=== PATIENT | female | born 1965 | race Caucasian/White ===

== ENCOUNTER 2022-10-27 18:05 | Inpatient (IN) ==
--- NOTE | 2022-10-27 18:40 | DR.HEADACH ---
HPI <Irving Vega - Last Filed: 10/28/22 08:22> Time Seen Time Seen by Provider: 10/27/22 18:40 Primary Care Physician Primary Care Physician: juan carlos Complaint/Symptoms Chief Complaint Doctors Comments: 57 y/o female presents for evaluation.Pt has been fighting facial shingles over the past 3 weeks, affecting the left eye. Has been on acyclovir, and antiviral eye drops. Pt was seen by ophthalmology today, they think the pt is developing viral retinitis. Has appt with retinal specialist tomorrow. Developed shaking chills today, with several episodes of nausea and vomiting. Having headaches since the onset. + worsened with light. Pt is on a chemo agent for chronic cerebral vasculitis. Also has h/o DM. Chief Complaint:: pt has shingles behind her lt eye and c/o severe headache and vomiting x 1 day Reviewed Nurses Notes Reviewed: Yes Source History Provided: Patient Mode of Arrival Mode of Arrival: Wheelchair Timing Onset of Chief Complaint: 10/27/22 Location Headache Location: Generalized Severity Headache Severity: Severe PMH <Irving Vega - Last Filed: 10/28/22 08:22> PMH Past Medical History: Yes Past Medical History: Diabetes, GERD and Hypertension Past Medical History Comment: long covid, cerebral vasculitis Past Surgical History: Yes Surgical History: Cholecystectomy and Ortho Surgery Family History History of Family Medical Conditions: Yes Family Medical History: Diabetes Mellitus and Hypertension Social History Does patient currently use any type of tobacco product: No Does any household member use tobacco: No Alcohol Use: None Do you use any recreational Drugs:: No Lives With: Family Lives Where: Home Infectious screening In the last 2 months have you had wt loss of >10#?: NO Have you had fever, night sweats or hemotysis?: No Have you traveled outside the country in the last 6 months?: No Isolation: Standard ROS <Irving Vega - Last Filed: 10/28/22 08:22> Review of Systems Constitutional: Chills Eyes: See HPI ENTM: No Symptoms Reported Respiratoy: No Symptoms Reported Cardiovascular: No Symptoms Reported Gastrointestinal/Abdominal: Nausea and Vomiting Genitourinary: No Symptoms Reported Neurological: Headache Musculoskeletal: No Symptoms Reported Integumentary: No Symptoms Reported All Other Systems: Reviewed and Negative PE <Irving Gary - Last Filed: 10/28/22 08:22> Vital Signs Vitals: Temperature 98.1 F Temperature 98.2 F Pulse Rate 86 Pulse Rate 127 Respiratory Rate 18 Respiratory Rate 24 Blood Pressure [Right Arm] 112/51 Blood Pressure [Left Arm] 148/81 Blood Pressure 93/62 Blood Pressure 110/62 O2 Sat by Pulse Oximetry 97 O2 Sat by Pulse Oximetry 93 General General Appearance: Alert and In Distress Head Head Exam: Normal Inspection Eyes Eye exam: PERRL, EOMI and Other (+ photophobia); negative Conjunctival Injection Neck Neck Exam: Normal Inspection Respiratory Respiratory Exam: Normal Lung Sounds Bilat; negative Accessory Muscle Use or Respiratory Distress Cardiovascular Cardiovascular Exam: Regular Rate, Normal Rhythm, Tachycardia and Normal Heart Sounds Abdominal Exam Abdominal Exam: Soft; negative Tenderness Neurologic Neurological Exam: Alert, Oriented X3 and CN II-XII Intact; negative Motor Sensory Deficit Skin Skin Exam: Warm and Dry <Deb MiguelLouis - Last Filed: 10/29/22 03:53> Vital Signs Vitals: Temperature 98.1 F Temperature 98.2 F Pulse Rate 86 Pulse Rate 127 Respiratory Rate 18 Respiratory Rate 24 Blood Pressure [Right Arm] 112/51 Blood Pressure [Left Arm] 148/81 Blood Pressure 93/62 Blood Pressure 110/62 O2 Sat by Pulse Oximetry 97 O2 Sat by Pulse Oximetry 93 <Deb AsencioggNicolaix - Last Filed: 10/29/22 03:53> Differential Diagnosis Differential Diagnosis: Considerations may include:: CVA, Intracerebral Hemorrhage and Sinusitis Differential Diagnosis Comment: Dehydration,electrolyte abnormalities COURSE <Irving Vega - Last Filed: 10/28/22 08:22> Treatment Treatment: 57 y/o with recent left facial shingles, affected the eye. Now with possible developing left viral retinitis. Has appt with leave specialist tomorrow. W/u initiated. Pt given IV fluids, IV dilaudid/zofran, and dose of IV decadron. <Deb MiguelLouis - Last Filed: 10/29/22 03:53> Treatment Treatment: 57 y/o with recent left facial shingles, affected the eye. Now with possible developing left viral retinitis. Has appt with leave specialist tomorrow. W/u initiated. Pt given IV fluids, IV dilaudid/zofran, and dose of IV decadron. Patient's Brain CT w/o contrast revealed Left maxillary sinusitis and she was given rocephin 1 gram Iv. Patient says she is very sensitive to pain meds and they can decrease her BP. Patient 's bp is 103/52 affter the 2nd liter iv bolus. She has been accepted to Dr Paez's service and he has asked to run the 3rd liter @50ml/hr iv. Patient usually wears 2L of 02 nc since she has had long covid.Today her 02 sats were in the 80's on the 2L and she has had 4L 02 in the ED with her 02 sat 99- 100% Patient has stage III Kidney Disease (Dr Vega states that her creat is usually 1.5). Patient had nausea and vomiting at home today that has contributed to the creat of 2.31 ROR <Irving Vega - Last Filed: 10/28/22 08:22> Labs Reviewed Result Diagrams: 10/28/22 04:13 10/28/22 04:13 Laboratory: 10/27/22 20:02 Blood Blood Culture - Preliminary 10/27/22 20:09 Blood Blood Culture - Preliminary WBC 4.3 X10^3/uL (3.6-10.0) 10/27/22 19:10 RBC 3.58 X10^6/uL (3.5-5.4) 10/27/22 19:10 Hgb 11.7 g/dL (12.0-16.0) L 10/27/22 19:10 Hct 34.3 % (36.0-47.0) L 10/27/22 19:10 MCV 95.8 fL (80.0-100.0) 10/27/22 19:10 MCH 32.7 pg (27.0-34.0) 10/27/22 19:10 MCHC 34.1 g/dL (33.0-35.0) 10/27/22 19:10 RDW 17.7 % (11.6-16.5) H 10/27/22 19:10 Plt Count 161 X10^3/uL (150.0-450.0) 10/27/22 19:10 Plt Count Comment Adequate (ADEQUATE) 10/27/22 19:10 MPV 7.0 fL (7.4-11.0) L 10/27/22 19:10 Neut % (Auto) 97.2 % (42.0-75.0) H 10/27/22 19:10 Lymph % (Auto) 1.5 % (21.0-51.0) L 10/27/22 19:10 [place] % (Auto) 0.9 % (0.0-13.0) 10/27/22 19:10 Eos % (Auto) 0.2 % (0.9-2.9) L 10/27/22 19:10 Baso % (Auto) 0.2 % (0.2-1.0) 10/27/22 19:10 Neut # (Auto) 4.2 x10^3/uL (2.2-4.8) 10/27/22 19:10 Lymph # (Auto) 0.1 X10^3/uL (1.3-2.9) L 10/27/22 19:10 [place] # (Auto) 0 x10^3/uL (0.3-0.8) L 10/27/22 19:10 Eos # (Auto) 0.0 x10^3/uL (0.0-0.2) 10/27/22 19:10 Baso # (Auto) 0.0 X10^3/uL (0.0-0.1) 10/27/22 19:10 Absolute Nucleated RBC 0.1 /100WBC 10/27/22 19:10 Total Counted 100 10/27/22 19:10 Neutrophils % (Manual) 87 % (39-76) H 10/27/22 19:10 Band Neutrophils % 9 % (0-10) 10/27/22 19:10 Lymphocytes % (Manual) 4 % (13-43) L 10/27/22 19:10 Plt Morphology Comment Normal (NORMAL) 10/27/22 19:10 RBC Morphology Abnormal (NORMAL) A 10/27/22 19:10 Poikilocytosis Slight A 10/27/22 19:10 Anisocytosis Slight A 10/27/22 19:10 Sodium 138 mmol/L (136-145) 10/27/22 19:10 Corrected Sodium 139 mmol/L (136-145) 10/27/22 19:10 Potassium 4.5 mmol/L (3.5-5.1) 10/27/22 19:10 Chloride 98 mmol/L (98-107) 10/27/22 19:10 Carbon Dioxide 26.0 mmol/L (21-32) 10/27/22 19:10 BUN 38 mg/dL (7-18) H 10/27/22 19:10 Creatinine 2.31 mg/dL (0.55-1.02) H 10/27/22 19:10 Est GFR (MDRD) Af Amer 28 (>60) L 10/27/22 19:10 Est GFR (MDRD) Non-Af 23 (>60) L 10/27/22 19:10 Glucose 137 mg/dL (65-99) H 10/27/22 19:10 Lactic Acid 3.0 mmol/L (0.4-2.0) H 10/27/22 23:05 Calcium 8.6 mg/dL (8.5-10.1) 10/27/22 19:10 Corrected Calcium TNP 10/27/22 19:10 Total Bilirubin 0.50 mg/dL (0.2-1.0) 10/27/22 19:10 AST 17 Units/L (15-37) 10/27/22 19:10 ALT 24 Units/L (12-78) 10/27/22 19:10 Alkaline Phosphatase 100 Units/L (46-116) 10/27/22 19:10 Total Protein 7.0 g/dL (6.4-8.2) 10/27/22 19:10 Albumin 3.7 g/dL (3.4-5.0) 10/27/22 19:10 Globulin 3.3 g/dL (2.5-4.5) 10/27/22 19:10 Albumin/Globulin Ratio 1.1 Ratio (1.1-2.1) 10/27/22 19:10 Lipase 150 Units/L (73-393) 10/27/22 19:10 SARS-CoV-2 (PCR) Negative (NEGATIVE) 10/27/22 19:59 Influenza Type A (PCR) Negative (NEGATIVE) 10/27/22 19:59 Influenza Type B (PCR) Negative (NEGATIVE) 10/27/22 19:59 RSV (PCR) Negative (NEGATIVE) 10/27/22 19:59 <Deb Hoffman - Last Filed: 10/29/22 03:53> Labs Reviewed Laboratory Results Reviewed?: Yes Laboratory: 10/27/22 20:02 Blood Blood Culture - Preliminary 10/27/22 20:09 Blood Blood Culture - Preliminary WBC 4.3 X10^3/uL (3.6-10.0) 10/27/22 19:10 RBC 3.58 X10^6/uL (3.5-5.4) 10/27/22 19:10 Hgb 11.7 g/dL (12.0-16.0) L 10/27/22 19:10 Hct 34.3 % (36.0-47.0) L 10/27/22 19:10 MCV 95.8 fL (80.0-100.0) 10/27/22 19:10 MCH 32.7 pg (27.0-34.0) 10/27/22 19:10 MCHC 34.1 g/dL (33.0-35.0) 10/27/22 19:10 RDW 17.7 % (11.6-16.5) H 10/27/22 19:10 Plt Count 161 X10^3/uL (150.0-450.0) 10/27/22 19:10 Plt Count Comment Adequate (ADEQUATE) 10/27/22 19:10 MPV 7.0 fL (7.4-11.0) L 10/27/22 19:10 Neut % (Auto) 97.2 % (42.0-75.0) H 10/27/22 19:10 Lymph % (Auto) 1.5 % (21.0-51.0) L 10/27/22 19:10 [place] % (Auto) 0.9 % (0.0-13.0) 10/27/22 19:10 Eos % (Auto) 0.2 % (0.9-2.9) L 10/27/22 19:10 Baso % (Auto) 0.2 % (0.2-1.0) 10/27/22 19:10 Neut # (Auto) 4.2 x10^3/uL (2.2-4.8) 10/27/22 19:10 Lymph # (Auto) 0.1 X10^3/uL (1.3-2.9) L 10/27/22 19:10 [place] # (Auto) 0 x10^3/uL (0.3-0.8) L 10/27/22 19:10 Eos # (Auto) 0.0 x10^3/uL (0.0-0.2) 10/27/22 19:10 Baso # (Auto) 0.0 X10^3/uL (0.0-0.1) 10/27/22 19:10 Absolute Nucleated RBC 0.1 /100WBC 10/27/22 19:10 Total Counted 100 10/27/22 19:10 Neutrophils % (Manual) 87 % (39-76) H 10/27/22 19:10 Band Neutrophils % 9 % (0-10) 10/27/22 19:10 Lymphocytes % (Manual) 4 % (13-43) L 10/27/22 19:10 Plt Morphology Comment Normal (NORMAL) 10/27/22 19:10 RBC Morphology Abnormal (NORMAL) A 10/27/22 19:10 Poikilocytosis Slight A 10/27/22 19:10 Anisocytosis Slight A 10/27/22 19:10 Sodium 138 mmol/L (136-145) 10/27/22 19:10 Corrected Sodium 139 mmol/L (136-145) 10/27/22 19:10 Potassium 4.5 mmol/L (3.5-5.1) 10/27/22 19:10 Chloride 98 mmol/L (98-107) 10/27/22 19:10 Carbon Dioxide 26.0 mmol/L (21-32) 10/27/22 19:10 BUN 38 mg/dL (7-18) H 10/27/22 19:10 Creatinine 2.31 mg/dL (0.55-1.02) H 10/27/22 19:10 Est GFR (MDRD) Af Amer 28 (>60) L 10/27/22 19:10 Est GFR (MDRD) Non-Af 23 (>60) L 10/27/22 19:10 Glucose 137 mg/dL (65-99) H 10/27/22 19:10 Lactic Acid 3.0 mmol/L (0.4-2.0) H 10/27/22 23:05 Calcium 8.6 mg/dL (8.5-10.1) 10/27/22 19:10 Corrected Calcium TNP 05/31/23 19:10 Total Bilirubin 0.50 mg/dL (0.2-1.0) 10/27/22 19:10 AST 17 Units/L (15-37) 10/27/22 19:10 ALT 24 Units/L (12-78) 10/27/22 19:10 Alkaline Phosphatase 100 Units/L (46-116) 10/27/22 19:10 Total Protein 7.0 g/dL (6.4-8.2) 10/27/22 19:10 Albumin 3.7 g/dL (3.4-5.0) 10/27/22 19:10 Globulin 3.3 g/dL (2.5-4.5) 10/27/22 19:10 Albumin/Globulin Ratio 1.1 Ratio (1.1-2.1) 10/27/22 19:10 Lipase 150 Units/L (73-393) 10/27/22 19:10 SARS-CoV-2 (PCR) Negative (NEGATIVE) 10/27/22 19:59 Influenza Type A (PCR) Negative (NEGATIVE) 10/27/22 19:59 Influenza Type B (PCR) Negative (NEGATIVE) 10/27/22 19:59 RSV (PCR) Negative (NEGATIVE) 10/27/22 19:59 XRAY XRAY Interpreted by: Radiologist X-ray Results: HISTORY Shortness of breath STUDY CHEST, 1 VIEW COMPARISON 03/02/2022 FINDINGS The trachea is midline. The cardiac silhouette is enlarged with a tortuous thoracic aorta . Increased interstitial changes with prominent vascular markings are observed consistent with underlying CHF.. The bony thorax is unremarkable. IMPRESSION Increased interstitial changes with prominent vascular markings are observed consistent with underlying CHF. Electronically signed by: SAHRA WALTER (Oct 28, 2022 06:52:32) Opioid <Irving Vega - Last Filed: 10/28/22 08:22> Opioid Risk Tool Age (Coy box if 16-45): No History of Preadolescent Sexual Abuse: No Total: 0 Total Score Risk Category: Low Risk Copyright: Curt predicting aberrant behaviors <Deb Hoffman - Last Filed: 10/29/22 03:53> Opioid Risk Tool Total: 0 Total Score Risk Category: Low Risk Discharge Plan Diagnosis Discharge Problem: Herpes zoster retinitis of left eye, Left maxillary sinusitis, Chronic kidney disease, stage 3, Hypotension, Congestive heart failure Discharge Plan Patient Disposition: 09 ADMITTED INPATIENT Condition: Stable Orders to Discharge Patient Discharge Orders: Discharge by Transfer to Outside Facility (Routine); Ordered 10/28/22 Ordered By: Buddy Hogue
[2022-10-27] MEDS ORDERED: NS 1,000 ML IV 1,000 ML IV ONE ×2 (18:56→23:02)
[2022-10-27] MEDS ORDERED: ZOFRAN INJ 4 MG VIAL IVP ONE (18:56)
[2022-10-27] MEDS ORDERED: DILAUDID INJ IVP ONE (18:56)
[2022-10-27] MEDS ORDERED: DECADRON INJ IVP ONE (18:56)
[2022-10-27] MEDS ORDERED: NS 1,000 ML IV 1,000 ML ONE ×2 (19:03→23:03)
[2022-10-27] MEDS ORDERED: DECADRON INJ ONE (19:03)
[2022-10-27] MEDS ORDERED: DILAUDID INJ ONE (19:03)
[2022-10-27] MEDS ORDERED: ZOFRAN INJ 4 MG VIAL ONE (19:03)
[2022-10-27 19:21] LABS: HEMATOCRIT 34.3 % (36.0-47.0); HEMOGLOBIN 11.7 g/dL (12.0-16.0); LYMPHOCYTES # (AUTO) 0.1 X10^3/uL (1.3-2.9); LYMPHOCYTES % (AUTO) 1.5 % (21.0-51.0); MEAN CORPUSCULAR HEMOGLOBIN 32.7 pg (27.0-34.0); WHITE BLOOD COUNT 4.3 X10^3/uL (3.6-10.0)
[2022-10-27 19:25] LABS: BASOPHILS % (AUTO) 0.2 % (0.2-1.0); EOSINOPHILS % (AUTO) 0.2 % (0.9-2.9); MEAN CORPUSCULAR HGB CONC 34.1 g/dL (33.0-35.0); MEAN CORPUSCULAR VOLUME 95.8 fL (80.0-100.0); MONOCYTES # (AUTO) 0 x10^3/uL (0.3-0.8); MONOCYTES % (AUTO) 0.9 % (0.0-13.0); NEUTROPHILS # (AUTO) 4.2 x10^3/uL (2.2-4.8); NEUTROPHILS % (AUTO) 97.2 % (42.0-75.0); PLATELET COUNT 161 X10^3/uL (150.0-450.0); RED BLOOD COUNT 3.58 X10^6/uL (3.5-5.4); RED CELL DISTRIBUTION WIDTH 17.7 % (11.6-16.5)
[2022-10-27 19:32] LABS: ALANINE AMINOTRANSFERASE 24 Units/L (12-78); ALBUMIN 3.7 g/dL (3.4-5.0); ALKALINE PHOSPHATASE 100 Units/L (46-116); ASPARTATE AMINO TRANSFERASE 17 Units/L (15-37); BLOOD UREA NITROGEN 38 mg/dL (7-18); CALCIUM 8.6 mg/dL (8.5-10.1); CHLORIDE 98 mmol/L (98-107); COR NA(FOR HYPERGLY) 139 mmol/L (136-145); CREATININE 2.31 mg/dL (0.55-1.02); GLUCOSE 137 mg/dL (65-99); LIPASE 150 Units/L (73-393); POTASSIUM 4.5 mmol/L (3.5-5.1); SODIUM 138 mmol/L (136-145); eGFR NON BLACK RACES 23 (>60)
[2022-10-27 19:41] LABS: BAND NEUTROPHILS % 9 % (0-10); PLATELET MORPHOLOGY COMMENT NORMAL (NORMAL)
[2022-10-27 19:42] LABS: ANISOCYTOSIS SLIGHT; POIKILOCYTOSIS SLIGHT
[2022-10-27] MEDS ORDERED: TYLENOL 500 MG TAB EXTRA STRENGTH PO ONE ×2 (19:51→19:53)
--- NOTE | 2022-10-27 19:55 | CT ---
BRAIN W/O CONCLINICAL INDICATION: HeadacheTECHNIQUE: Images were obtained through the head per standard CT protocol. Multiplanar reformatted images were generated from the CT dataset. Dose reduction techniques including Automated Exposure Control (AEC) and adjustment of mA and kV were utlized.COMPARISON:None.FINDINGS:There is no abnormal brain parenchymal density . There is no evidence of acute infarction, intracranial hemorrhage, mass or mass effect, or abnormal extra-axial collection . The density of the larger dural venous sinuses is normal . The ventricles are normal in size, shape and position . The skull base and calvarium are normal.Opacification left maxillary side.IMPRESSION:1.Left maxillary sinus opacification. Correlate with symptoms. No acute intracranial abnormality.Electronically signed by: ABHAY RIOS (October 27, 2022 19:54:27)
[2022-10-27] MEDS ORDERED: ROCEPHIN VIAL 1 GRAM 1 G in NS 100 ML IV 100 ML IV ONE (20:13)
[2022-10-27] MEDS ORDERED: ROCEPHIN VIAL 1 GRAM ONE (20:23)
[2022-10-27] MEDS ORDERED: NS 100 ML IV 100 ML ONE (20:23)
[2022-10-28] MEDS ORDERED: NS 1,000 ML IV 1,000 ML ONE (00:04)
[2022-10-28] MEDS: NS 1,000 ML IV 1,000 ML IV SCH ×2 (00:05→15:18)
[2022-10-28] MEDS ORDERED: ZOFRAN TAB 4 MG PO PRN (01:44)
[2022-10-28] MEDS ORDERED: PATIENT'S HOME MEDICATION (Alprazolam [Xanax] 0.5 mg Tablet) PO PRN (01:44)
[2022-10-28] MEDS ORDERED: XANAX PO PRN (02:00)
--- NOTE | 2022-10-28 02:02 | EKG ---
Test Reason : AE Blood Pressure : */* mmHG Vent. Rate : 92 BPM Atrial Rate : 92 BPM P-R Int : 200 ms QRS Dur : 88 ms QT Int : 362 ms P-R-T Axes : 24 -8 15 degrees QTc Int : 447 ms Sinus rhythm with premature supraventricular complexes and with occasional premature ventricular comp lexes Otherwise normal ECG No previous ECGs available Confirmed by Dong Villagomez ([id number]) on 10/29/2022 4:38:54 PM Referred By: Confirmed By: Dong Villagomez
[2022-10-28] MEDS ORDERED: TYLENOL 325 MG TAB PO ONE (04:20)
[2022-10-28] MEDS: TYLENOL 325 MG TAB PO PRN ×3 (04:30→21:16)
[2022-10-28 05:16] LABS: BASOPHILS % (AUTO) 0.3 % (0.2-1.0); HEMATOCRIT 29.9 % (36.0-47.0); HEMOGLOBIN 10.4 g/dL (12.0-16.0); LYMPHOCYTES # (AUTO) 0.1 X10^3/uL (1.3-2.9); LYMPHOCYTES % (AUTO) 0.8 % (21.0-51.0); MEAN CORPUSCULAR HEMOGLOBIN 33.7 pg (27.0-34.0); MEAN CORPUSCULAR HGB CONC 34.8 g/dL (33.0-35.0); MEAN CORPUSCULAR VOLUME 96.6 fL (80.0-100.0); MEAN PLATELET VOLUME 7.7 fL (7.4-11.0); MONOCYTES # (AUTO) 0.1 x10^3/uL (0.3-0.8); MONOCYTES % (AUTO) 1.4 % (0.0-13.0); NEUTROPHILS # (AUTO) 8.2 x10^3/uL (2.2-4.8); NEUTROPHILS % (AUTO) 97.5 % (42.0-75.0); PLATELET COUNT 137 X10^3/uL (150.0-450.0); WHITE BLOOD COUNT 8.4 X10^3/uL (3.6-10.0)
[2022-10-28 05:23] LABS: CALCIUM 7.9 mg/dL (8.5-10.1); CARBON DIOXIDE 24.5 mmol/L (21-32); COR CA(FOR HYPOALB) 8.7 mg/dL (8.5-10.1); CREATININE 2.74 mg/dL (0.55-1.02); POTASSIUM 4.9 mmol/L (3.5-5.1); TOTAL PROTEIN 6.3 g/dL (6.4-8.2)
[2022-10-28 05:50] VITALS: BMI 44.6
[2022-10-28] MEDS ORDERED: VALTREX PO SCH ×2 (06:00→21:00)
[2022-10-28] MEDS ORDERED: NEURONTIN CAP 300 MG PO SCH ×2 (06:00→21:00)
[2022-10-28 06:11] LABS: APPEARANCE,URINE SLIGHTLY HAZY (CLEAR); COLOR,URINE YELLOW (YELLOW)
[2022-10-28 06:12] LABS: BACTERIA,URINE NEGATIVE /HPF (NEGATIVE); BILIRUBIN,URINE NEGATIVE (NEGATIVE); BLOOD/HEMOGLOBIN,URINE NEGATIVE (NEGATIVE); GLUCOSE, URINE NEGATIVE (NEGATIVE); KETONES,URINE NEGATIVE (NEGATIVE); LEUKOCYTE ESTERASE ,URINE 1+ (NEGATIVE); NITRITES,URINE NEGATIVE (NEGATIVE); PROTEIN,URINE TRACE (NEGATIVE); RBC,URINE 0-2 /HPF (0-3); SQUAMOUS EPITHELIAL CELL,UR RARE /HPF (NEGATIVE); UROBILINOGEN,URINE NORMAL (NORMAL)
[2022-10-28 06:19] LABS: ANISOCYTOSIS SLIGHT; BAND NEUTROPHILS % 28 % (0-10); METAMYELOCYTES % 4; PLATELET MORPHOLOGY COMMENT NORMAL (NORMAL)
--- NOTE | 2022-10-28 07:01 | RAD ---
HISTORYShortness of breathSTUDYCHEST, 1 [id number]/04/2022FINDINGSThe trachea is midline. The cardiac silhouette is enlarged with a tortuous thoracic aorta . Increased interstitial changes with prominent vascular markings are observed consistent with underlying CHF.. The bony thorax is unremarkable.IMPRESSIONIncreased interstitial changes with prominent vascular markings are observed consistent with underlying CHF.Electronically signed by: SAHRA WALTER (Oct 28, 2022 06:52:32)
[2022-10-28] MEDS ORDERED: PERCOCET TAB 5/325 MG PO PRN (08:00)
[2022-10-28] MEDS: PROVENTIL NEB TX 0.083% 2.5MG/ 3ML NEB SCH ×2 (08:17→13:37)
[2022-10-28] MEDS ORDERED: LEVOPHED INJ (VIAL) 8 MG in D5W 250 ML IV 250 ML IV PRN (08:33)
[2022-10-28] MEDS ORDERED: LEVOPHED 8 MG/250 ML IV *PREMIX 8 MG/250 ML PLAST..BAG IV PRN (08:38)
[2022-10-28] MEDS: MOTRIN TAB 800 MG PO PRN ×2 (08:56→14:40)
[2022-10-28] MEDS ORDERED: [UNRECOGNIZED DRUG - OTHER] IN SCH (09:00)
[2022-10-28] MEDS ORDERED: ASPIRIN EC 81 MG PO SCH (09:00)
[2022-10-28] MEDS ORDERED: FLUTICASONE PROPIONATE IN SCH (09:00)
[2022-10-28] MEDS ORDERED: BUSPAR PO SCH (09:00)
[2022-10-28] MEDS ORDERED: [UNRECOGNIZED DRUG - OTHER] PO SCH (09:00)
[2022-10-28] MEDS ORDERED: VITAMIN D3 125 mcg (5,000 UNITS) PO SCH (09:00)
[2022-10-28] MEDS ORDERED: SALMETEROL IN SCH (09:00)
[2022-10-28] MEDS ORDERED: LEVAQUIN PREMIX IV 750 MG 750 MG/150 ML BAG IV SCH (09:00)
[2022-10-28] MEDS ORDERED: VIT C E ZN COPPR LUTEIN ZEAXAN PO SCH (09:00)
[2022-10-28] MEDS ORDERED: LEXAPRO PO SCH ×2 (09:00)
[2022-10-28] MEDS ORDERED: TOPROL XL PO SCH (09:00)
[2022-10-28] MEDS ORDERED: CYCLOPHOSPHAMIDE 50 MG PO SCH ×2 (09:00)
[2022-10-28] MEDS ORDERED: PULMICORT NEB TX 0.5 MG NEB SCH (09:00)
[2022-10-28 09:06] LABS: LACTIC ACID 2.8 mmol/L (0.4-2.0)
[2022-10-28] MEDS ORDERED: LEXAPRO ONE (09:19)
[2022-10-28] MEDS: PROTONIX TAB 40 MG PO SCH ×2 (09:32→21:19)
[2022-10-28] MEDS: FORTAZ or TAZICEF VIAL INJ 1 G in NS 100 ML IV 100 ML IV SCH ×2 (09:33→21:20)
[2022-10-28] MEDS ORDERED: VANCOMYCIN IV *PREMIX 1.5 G/300 ML BAG 1.5 G/300 ML PIGGYBACK IV SCH (10:30)
--- NOTE | 2022-10-28 10:37 | DR.H&P ---
H&P - History & Physical for Day of: H&P Date: 10/28/22 - Chief Complaint Chief Complaint: FEVER, CHILLS, NAUSEA, VOMITING, HEADACHE, WEAKNESS - History of Present Illness History of Present Illness: IS A 57 YEAR OLD PATIENT OF OURS. SHE PRESENTED TO THE ER WITH COMPLAINTS OF FEVER, CHILLS, NAUSEA, VOMITING, HEADACHE, DYSURIA, DIZZINESS, DECREASED APPETITE, AND INCREASED WEAKNESS. 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 SHE REPORTS THAT SHE HAS BEEN RECEIVING TREATMENT FOR SHINGLES OF THE FACE WHICH HAS AFFECTED THE LEFT EYE FOR THE PAST THREE WEEKS. SHE HAS BEEN TAKING ACYCLOVIR AND ANTIVIRAL EYE DROPS. SHE WAS ALSO SEEN BY THE OPTHALMOLOGIST PRIOR TO ADMISSION AND WAS TOLD THAT SHE IS DEVELOPING VIRAL RETINITIS. SHE REPORTS THAT SHE IS ALSO TAKING A CHEMO AGENT FOR CHRONIC CEREBRAL VASCULITIS. OTHER MEDICAL HISTORY INCLUDES TYPE 2 DM, GERD, HTN, KIDNEY DISEASE, OSTEOARTHRITIS, MACULAR DEGENERATION, PULMONARY HTN, LONG COVID, AND OBESITY. ON ARRIVAL TO THE HOSPITAL, HER VITALS WERE 98.2-127-24-93%-110/62. LABS WERE OBTAINED. WBC 4.3, RBC 3.58, HGB 11.7, HCT 34.3, PLT COUNT 161, SODIUM 138, POTASSIUM 4.5, CHLORIDE 98, CARBON DIOXIDE 26, BUN 38, CREATININE 2.31, GLUCOSE 137, LACTIC ACID 3.3, CALCIUM 8.6, AST 17, ALT 24, ALK PHOS 100, TOTAL PROTEIN 7.0, ALBUMN 3.7, LIPASE 150. URINALYSIS WAS OBTAINED AND REVEALED: WBC 0-2, RBC 0-2, LEUKOCYTES 1+, BACTERIA NEGATIVE. COVID, INFLUENZA, AND RSV NEGATIVE. BLOOD AND URINE CULTURES WERE SET UP. A BRAIN CT WAS OBTAINED AND REVEALED: 1.Left maxillary sinus opacification. Correlate with symptoms. No acute intracranial abnormality. AN EKG WAS OBTAINED AND REVEALED: SINUS RHYTHM WITH PVCs AND WITH OCCASIONAL PREMATURE VENTRICULAR COMPLEXES. A CHEST XRAY WAS OBTAINED AND REVEALED: Increased interstitial changes with prominent vascular markings are observed consistent with underlying CHF. IN THE ER, SHE WAS GIVEN DECADRON 8MG IV X 1, DILAUDID 1MG IV X 1, NORMAL SALINE BOLUS X 2 LITERS, ZOFRAN 4MG IV X 1, TYLENOL 1000MG X 1 DOSE, ROCEPHIN 1G IV X 1. SHE WAS ADMITTED TO THE HOSPITAL INPATIENT STATUS FOR FURTHER EVALUATION AND TREATMENT OF SEPSIS, SEPTIC SHOCK, SHINGLES, DEHYDRATION, ACUTE ON CHRONIC RENAL FAILURE. SHE WAS STARTED ON NORMAL SALINE AT 150 ML/HR, LEVAQUIN 750MG IV Q48H, FORTAZ 1G IV BID, VANCOMYCIN 1.5G IV DAILY, PULMICORT NEBS BID, PROVENTIL NEBS BID, MOTRIN 800MG PO Q8H PRN, VALTREX 1G PO BID, AND HER HOME MEDICATIONS WERE RESUMED. HOME MEDS INCLUDE: XANAX, ASPIRIN, BUSPAR, ZYRTEC, VITAMIN D3, LEXAPRO, NEURONTIN, TOPROL XL, ZOFRAN, PROTONIX, PERCOCET. AFTER ADMISSION, HER BLOOD PRESSURE DROPPED TO THE 70/40s. SHE WAS GIVEN AN ADDITIONAL 1 LITER BOLUS OF NORMAL SALINE WITH NO IMPROVEMENT NOTED IN BLOOD PRESSURE. WE THEN STARTED A LEVOPHED DRIP. OTHERWISE, WE PLAN TO FOLLOW-UP WITH AM LABS AND CONTINUE TO MONITOR AND MAKE ADJUSTMENTS NECESSARY. TIME SPENT ON CLINICAL ASSESSMENT, REVIEWING LABS AND IMAGING, DECISION MAKING, AND DOCUMENTATION GREATER THAN 75 MINUTES. 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 VASCULITIS - Past Surgical History Surgical History: Cholecystectomy - Family History Family Medical History: Diabetes Mellitus, Cancer, Hypertension - Social History Does patient currently use any type of tobacco product: No Have you used tobacco products in the last 12 months: No Does any household member use tobacco: No Alcohol Use: None Drug Use: None - Medications Home Medications: Home Medications Medication Instructions Recorded Confirmed Type alprazolam 0.5 mg tablet (Xanax) 0.5 mg PO QDAY PRN Anxiety 08/13/18 10/27/22 History aspirin 81 mg tablet,delayed 81 mg PO QAM 08/13/18 10/27/22 History release (Aspir-) cetirizine 10 mg capsule (Zyrtec) 10 mg PO QHS 08/13/18 10/27/22 History cholecalciferol (vitamin D3) 125 5,000 units PO QAM 08/13/18 10/27/22 History mcg (5,000 unit) tablet (Vitamin D3) escitalopram oxalate 10 mg tablet 20 mg PO QAM 08/13/18 10/27/22 History (Lexapro) ibuprofen 800 mg tablet 800 mg PO Q8H PRN Pain 08/13/18 10/27/22 History insulin detemir U-100 100 unit/mL 25 units subcut BID 08/13/18 10/27/22 History subcutaneous solution (Levemir U-100 Insulin) metformin 1,000 mg tablet 1,000 mg PO BID 08/13/18 10/27/22 History olmesartan 20 mg tablet (Benicar) 20 mg PO QAM 08/13/18 12/07/21 History pantoprazole 40 mg tablet,delayed 40 mg PO BID 08/13/18 10/27/22 History release (Protonix) vit C 250 mg-vit E 90 mg-zinc 40 1 cap PO BID 08/13/18 12/07/21 History mg-copper 1 [id number] capsule (PreserVision AREDS-2) sulfamethoxazole 800 1 tab PO QDAY 12/07/21 10/27/22 History mg-trimethoprim 160 mg tablet buspirone 5 mg tablet 1 tab PO BID 10/27/22 10/27/22 History cetirizine 10 mg tablet 1 tab PO QPM 10/27/22 10/27/22 History cyclophosphamide 50 mg capsule 1 cap PO QDAY 10/27/22 10/27/22 History escitalopram oxalate 20 mg tablet 1 tab PO QAM 10/27/22 10/27/22 History fluticasone 113 mcg-salmeterol 14 1 puff inhalation BID 10/27/22 10/27/22 History mcg/actuation breath activated powdr gabapentin 300 mg capsule 1 cap PO TID 10/27/22 10/27/22 History insulin detemir U-100 100 unit/mL 30 unit subcut BID 10/27/22 10/27/22 History (3 mL) subcutaneous pen (Levemir FlexPen) metoprolol succinate 25 mg 0.5 tab PO QAM 10/27/22 10/27/22 History tablet,extended release 24 hr ondansetron 4 mg disintegrating 1 tab PO PRN PRN 10/27/22 10/27/22 History tablet oxycodone-acetaminophen 7.5 mg-325 1 tab PO QID PRN pain 10/27/22 10/27/22 History mg tablet prednisone 1 mg tablet 1 tab PO DAILY 10/27/22 10/28/22 History valacyclovir 1 gram tablet 1 tab PO TID 10/27/22 10/27/22 History - Review of Systems Constitutional: Fever, Chills, Weakness Eyes: No Symptoms Reported ENT: No Symptoms Reported Respiratory: Shortness of Breath Cardiovascular: Light Headedness Gastrointestinal: Nausea, Vomiting. denies: Abdominal Pain, Diarrhea, Constipation Genitourinary: Dysuria Musculoskeletal: No Symptoms Reported Skin: No Symptoms Reported Neurological: Weakness, Confusion - Physical Exam Vital Signs: Temperature 100.3 F Temperature 98.2 F Pulse Rate 109 Pulse Rate 127 Respiratory Rate 22 Respiratory Rate 24 Blood Pressure [Right Arm] 112/51 Blood Pressure [Left Arm] 148/81 Blood Pressure 77/50 Blood Pressure 110/62 O2 Sat by Pulse Oximetry 100 O2 Sat by Pulse Oximetry 93 Oriented: Normal Eyes: Normal Ear: Normal Nose: Normal Throat: Normal Respiratory: Diminished Throughout Cardiovascular: Tachycardia : Normal Auscultation: Bowel Sounds: Normal Palpation: Normal Tenderness: Normal Skin: Decreased [place] Musculoskeletal: Normal Psychiatric: Normal Mood Description: Calm Affect: Normal Speech Pattern: Clear - Assessment/Plan (1) Sepsis Qualifiers: Sepsis type: sepsis due to unspecified organism Sepsis acute organ dysfunction status: with acute organ dysfunction Severe sepsis acute organ dysfunction type: acute renal failure Acute renal failure type: unspecified Severe sepsis shock status: with septic shock Qualified Code(s): A41.9 - Sepsis, unspecified organism; R65.21 - Severe sepsis with septic shock; N17.9 - Acute kidney failure, unspecified Status: Acute Plan: ADMIT, NORMAL SALINE AT 150 ML/HR, LEVAQUIN 750MG IV Q48H, FORTAZ 1G IV BID, VANCOMYCIN 1.5G IV DAILY, PULMICORT NEBS BID, PROVENTIL NEBS BID, MOTRIN 800MG PO Q8H PRN, VALTREX 1G PO BID, AND HER HOME MEDICATIONS WERE RESUMED (2) Herpes zoster retinitis of left eye Status: Acute (3) Dehydration Status: Acute (4) Left maxillary sinusitis Status: Acute (5) Acute on chronic renal failure Qualifiers: Acute renal failure type: unspecified Chronic kidney disease stage: unspecified stage Qualified Code(s): N17.9 - Acute kidney failure, unspecified; N18.9 - Chronic kidney disease, unspecified Status: Acute - Allergies Allergies/Adverse Reactions: Allergies Allergy/AdvReac Type Severity Reaction Status Date / Time lansoprazole [From Prevacid] Allergy Intermediate NAUSEA Verified 10/27/22 19:15
[2022-10-28] MEDS ORDERED: PHARMACY CONSULT - VANCOMYCIN XX SCH (11:00)
[2022-10-28] MEDS: NovoLIN R (or HumuLIN R) SUBCUT PRN ×2 (18:00→21:23)
[2022-10-28 19:03] VITALS: O2SAT 97
[2022-10-28] MEDS ORDERED: ZyrTEC TAB 10 MG PO SCH (21:00)
[2022-10-28 21:49] VITALS: BP 102/58; PULSE 101; TEMP 98.4
[2022-10-31] MEDS ORDERED: PHARMACY COMMENT IV NR (08:30)
== END 2022-10-28 21:40 | disposition short-term general hospital (02) | DRG 872 ==
LOC: ER 18:05 → ICU 10-28 00:57
PROVIDERS: ADMIT Internal Medicine; ATTEND Internal Medicine
DX: I11.0 Hypertensive heart disease with heart failure; N17.8 Other acute kidney failure; R11.2 Nausea with vomiting, unspecified; N39.0 Urinary tract infection, site not specified; A41.59 Other Gram-negative sepsis; R51.9 Headache, unspecified; B02.8 Zoster with other complications; N18.30 Chronic kidney disease, stage 3 unspecified; J01.00 Acute maxillary sinusitis, unspecified; Z92.21 Personal history of antineoplastic chemotherapy; Z79.899 Other long term (current) drug therapy; R06.02 Shortness of breath; I67.7 Cerebral arteritis, not elsewhere classified; E86.0 Dehydration; K21.9 Gastro-esophageal reflux disease without esophagitis; I50.9 Heart failure, unspecified; Z20.822 Contact with and (suspected) exposure to COVID-19